=== PATIENT | female | born 1945 | race Caucasian/White ===

== ENCOUNTER 2018-10-04 12:08 | Inpatient (IN) | payer MEDICARE ==
[~2018-10-04] VITALS: Ht 175.3 cm; Wt 73.7 kg
[2018-10-04 12:52] LABS: Basophils # (auto) 0 uL; Basophils % (auto) 0.5 % (0.0-2.0); Eosinophils # (auto) 0.1 uL; Eosinophils % (auto) 0.8 % (0.0-7.0); Hematocrit 45.3 % (36.0-46.0); Hemoglobin 15.6 g/dL (12.2-16.2); Lymphocytes # (auto) 1.5 uL; Lymphocytes % (auto) 18.4 % (10.0-50.0); Mean Corpuscular Hemoglobin 32.8 pg (28.0-32.0); Mean Corpuscular Hgb Conc. 34.5 g/dL (32.0-36.0); Monocytes # (auto) 0.6 uL; Neutrophils # (auto) 6.1 uL; Neutrophils % (auto) 73.3 % (37.0-80.0); Nucleated Red Blood Cells % 0.1 %; Platelet Count (auto) 200 10^3/uL (140-450); Red Blood Cells 4.77 10^6/uL (4.0-5.20); Red Cell Distribution Width 13.6 % (11.8-14.3); White Blood Cell 8.3 10^3/uL (4.4-10.8)
[2018-10-04] MEDS ORDERED: ONDANSETRON HCL 4 MG/2 ML VIAL IV ONE (13:00)
[2018-10-04 13:13] LABS: Alanine Aminotransferase 25 U/L (13-56); Albumin 3.7 g/dL (3.4-5.0); Anion Gap 6 (5-15); Blood Urea Nitrogen 19 mg/dL (7-18); Calcium 8.6 mg/dL (8.5-10.1); Carbon Dioxide 26 mmol/L (21-32); Chloride 106 mmol/L (98-107); Glucose 221 mg/dL (74-106); Sodium 138 mmol/L (136-145)
[2018-10-04 13:18] LABS: Alkaline Phosphatase 97 U/L (45-117); Aspartate Aminotransferase 13 U/L (15-37); BUN/Creatinine Ratio 20.7; Bilirubin, Total 0.5 mg/dL (0.2-1.0); GFR African American > 60 mL/min; GFR Non-African American > 60 mL/min; Total Protein 6.9 g/dL (6.4-8.2)
[2018-10-04] MEDS: MORPHINE SULFATE 10 MG/ML INJ 1ML SDV IV ONE ×2 (13:29→13:59)
[2018-10-04] MEDS ORDERED: PROMETHAZINE HCL 25 MG/ML 1ML IV ONE (13:45)
[2018-10-04] MEDS ORDERED: NITROGLYCERIN 0.4 MG SL TAB SL PRN (16:30)
[2018-10-04] MEDS ORDERED: METOPROLOL TARTRATE 1MG/1ML-5ML VIAL IV PRN (16:30)
[2018-10-04] MEDS ORDERED: DEXTROSE (50%) 50ML SYRG IV PRN (16:30)
[2018-10-04] MEDS ORDERED: TEMAZEPAM 15 MG CAP PO PRN (16:30)
[2018-10-04] MEDS ORDERED: PROMETHAZINE HCL 25 MG/ML 1ML IV PRN (16:30)
[2018-10-04] MEDS ORDERED: MORPHINE SULFATE 10 MG/ML INJ 1ML SDV IV PRN (16:30)
[2018-10-04] MEDS ORDERED: LORazepam 0.5 MG TAB PO PRN (16:30)
[2018-10-04] MEDS: InsuLIN REG 1unit/0.01ml Soln (100units/ml) SC SCH ×2 (18:10→22:00)
[2018-10-04] MEDS: ACCU-CHEK COMFORT CURVE STRIP VI SCH ×2 (18:10→22:00)
--- NOTE | 2018-10-04 18:35 | NUR ---
Telemetry admit from [facility] admitted to Telemetry unit after SBAR received. Patient oriented to Brandy Hyatt primary RN, unit, room, bed, and unit policies regarding patient care and visiting hours. Patient now on continuous telemetry monitoring, tele box # HC2 and telemetry reading on arrival to unit is SR 76. Patient currently on RA, no c/o of SOB, patient weighed by bedscale and encouraged to call if they need something, call light within reach. All questions and concerns addressed, patient verbalized understanding.
--- NOTE | 2018-10-04 18:45 | NUR ---
Skin Patient skin assessed, pink small area noted to right knee, small ecchymosis area noted to left wrist and blanchable redness noted to sacrum, pt instructed to attempt to turn Q2hrs or often as she could to prevent skin breakdown, pt verbalized understanding, and could demonstrate how to turn self, call light within reach, bed alarm activated, cont care
[2018-10-04 19:25] VITALS: BP 127/73
--- NOTE | 2018-10-04 19:25 | NUR ---
Opening Note Received report from day shift RN. Patient is awake, alert and oriented x4. No signs or symptoms of distress or shortness of breath noted at this time. Patient states right hip pain 10/10 and is requesting pain medications. Reviewed plan of care with patient, patient verbalized understanding. Bed in low and locked position, call light within reach. Will continue to monitor Q1h hour and PRN.
[2018-10-04 19:52] LABS: Hematocrit 43.7 % (36.0-46.0)
[2018-10-04] MEDS: MORPHINE SULFATE 10 MG/ML INJ 1ML SDV IV PRN (19:52)
[2018-10-04 22:00] VITALS: BP 105/50
[2018-10-04] MEDS: METOPROLOL TARTRATE 25 MG TAB PO SCH (22:00)
--- NOTE | 2018-10-04 22:05 | NUR ---
Patient refused medications Patient refused metoprolol, states she "only takes it once a day and already took it this morning" Blood pressure is 105/50, and heart rate is 73. Patient refused accuchecks. States "I don't want to check it, and i don't take insulin at home" Educated patient on importance of checking blood sugar, patient continues to refuse. Will continue to monitor Q1 hour and PRN.
--- NOTE | 2018-10-04 23:04 | NUR ---
Patient is resting comfortably in bed with eyes closed. No signs or symptoms of distress noted at this time. Will continue to monitor Q1 hour and PRN.
[2018-10-05] MEDS: MORPHINE SULFATE 10 MG/ML INJ 1ML SDV IV PRN ×2 (01:27→12:39)
--- NOTE | 2018-10-05 01:48 | NUR ---
Patient refused lab draw Re-draw ordered for H&H, patient refused. States "she just wants to sleep." Spoke with dye lab technician, he will attempt again later. Will continue to monitor Q1 hour and PRN.
[2018-10-05 04:59] LABS: Urine Bacteria FEW /hpf (None Seen); Urine Blood Negative /uL (Negative); Urine Mucus FEW (None Seen); Urine Specific Gravity 1.015 (1.001-1.035); Urine WBC 1 /hpf (0 - 5)
--- NOTE | 2018-10-05 05:20 | NUR ---
Patient refused lab draw again Patient states she "doesn't understand the need for blood work, she only came in for a fall" Patient educated, continues to refuse.
[2018-10-05 05:46] VITALS: BP 107/54
[2018-10-05] MEDS: SODIUM CHLORIDE 0.9% 1,000 ML IV SCH ×3 (05:48→19:08)
[2018-10-05] MEDS: ACCU-CHEK COMFORT CURVE STRIP VI SCH ×4 (06:17→21:27)
[2018-10-05] MEDS: InsuLIN REG 1unit/0.01ml Soln (100units/ml) SC SCH ×4 (06:17→21:27)
--- NOTE | 2018-10-05 07:20 | NUR ---
Opening Note Received report from night nurse. Pt resting in bed awake and alert, bed in low pos., locked, rails up x2, call light in reach. Having pain to right hip. will medicate for pain.
--- NOTE | 2018-10-05 07:40 | NUR ---
Closing Note Report given to day shift RN. Patient is awake in bed, eating breakfast. No signs or symptoms of distress noted at this time.
[2018-10-05 09:07] VITALS: BP 104/53
[2018-10-05] MEDS: PANTOPRAZOLE 40 MG TAB PO SCH (09:38)
[2018-10-05] MEDS: METOPROLOL TARTRATE 25 MG TAB PO SCH (09:38)
[2018-10-05 12:41] VITALS: BP 104/48
[2018-10-05 16:46] VITALS: BP 118/59
--- NOTE | 2018-10-05 18:30 | NUR ---
IV IV infiltrated. Removed it and site is benign. Attempted to restart but the vein collapsed. Pt wants another person to restart her IV. Asked the charge nurse and one will come to attempt it after their report. Explained this to the patient.
--- NOTE | 2018-10-05 19:19 | NUR ---
SHIFT REPORT Shift report given to night nurse. Pt resting in bed. bed ini low pos., locked, rails up x 2, call light in reach.
--- NOTE | 2018-10-05 19:25 | NUR ---
Opening Note Received report from day shift RN. Patient is awake, alert and oriented x4. No signs or symptoms of distress, or shortness of breath noted at this time. Patient states right hip pain 4/10 at this time and is requesting pain medications. Reviewed plan of care with patient, patient verbalized understanding. Bed in low and locked position, call light within reach. Will continue to monitor Q1 hour and PRN.
[2018-10-05] MEDS: traMADol HCL 50 MG TAB PO PRN (19:58)
--- NOTE | 2018-10-05 20:56 | NUR ---
Patient refusing IV insertion Patient currently has no IV access and is refusing IV reinsertion at this time. Patient states " I would rather wait until later. I just want to rest now." Will continue to monitor Q1 hour and PRN.
[2018-10-05 22:00] VITALS: BP 139/73
[2018-10-05 22:53] LABS: Basophils # (auto) 0 uL; Basophils % (auto) 0.5 % (0.0-2.0); Eosinophils # (auto) 0.2 uL; Eosinophils % (auto) 2.2 % (0.0-7.0); Hemoglobin 13.9 g/dL (12.2-16.2); Lymphocytes # (auto) 2.5 uL; Lymphocytes % (auto) 32.5 % (10.0-50.0); Mean Corpuscular Hemoglobin 32.6 pg (28.0-32.0); Mean Corpuscular Hgb Conc. 34.7 g/dL (32.0-36.0); Mean Corpuscular Volume 93.9 fL (80.0-100.0); Monocytes # (auto) 0.7 uL; Monocytes % (auto) 8.7 % (0.0-12.0); Neutrophils # (auto) 4.3 uL; Neutrophils % (auto) 56.1 % (37.0-80.0); Platelet Count (auto) 164 10^3/uL (140-450); Red Blood Cells 4.25 10^6/uL (4.0-5.20); Red Cell Distribution Width 13.3 % (11.8-14.3); White Blood Cell 7.6 10^3/uL (4.4-10.8)
--- NOTE | 2018-10-05 23:24 | NUR ---
Patient resting comfortably in bed with eyes closed No signs or symptoms of distress noted at this time. Will continue to monitor Q1 hour and PRN.
[2018-10-06 05:50] VITALS: BP 114/64
[2018-10-06 06:39] LABS: Basophils # (auto) 0 uL; Basophils % (auto) 0.6 % (0.0-2.0); Eosinophils # (auto) 0.2 uL; Eosinophils % (auto) 2.5 % (0.0-7.0); Hematocrit 39.1 % (36.0-46.0); Hemoglobin 13.6 g/dL (12.2-16.2); Lymphocytes # (auto) 2.1 uL; Lymphocytes % (auto) 32.4 % (10.0-50.0); Mean Corpuscular Hemoglobin 32.8 pg (28.0-32.0); Mean Corpuscular Hgb Conc. 34.9 g/dL (32.0-36.0); Mean Corpuscular Volume 93.9 fL (80.0-100.0); Monocytes # (auto) 0.6 uL; Monocytes % (auto) 9.9 % (0.0-12.0); Neutrophils # (auto) 3.5 uL; Neutrophils % (auto) 54.6 % (37.0-80.0); Nucleated Red Blood Cells % 0.1 %; Platelet Count (auto) 159 10^3/uL (140-450); Red Blood Cells 4.16 10^6/uL (4.0-5.20); Red Cell Distribution Width 13.5 % (11.8-14.3); White Blood Cell 6.4 10^3/uL (4.4-10.8)
[2018-10-06 06:47] LABS: INR 0.93 (0.9-1.15); Partial Thromboplastin Time 25.4 sec (23.78-33.04)
[2018-10-06 06:51] LABS: Chloride 109 mmol/L (98-107); Potassium 4.1 mmol/L (3.5-5.1); Sodium 138 mmol/L (136-145)
[2018-10-06 06:55] LABS: Anion Gap 3 (5-15); BUN/Creatinine Ratio 17.1; Blood Urea Nitrogen 12 mg/dL (7-18); Calcium 7.9 mg/dL (8.5-10.1); Carbon Dioxide 26 mmol/L (21-32); GFR African American > 60 mL/min; GFR Non-African American > 60 mL/min; Glucose 171 mg/dL (74-106)
[2018-10-06] MEDS: InsuLIN REG 1unit/0.01ml Soln (100units/ml) SC SCH ×3 (06:59→16:58)
[2018-10-06] MEDS: ACCU-CHEK COMFORT CURVE STRIP VI SCH ×3 (06:59→16:57)
[2018-10-06] MEDS: traMADol HCL 50 MG TAB PO PRN (07:00)
--- NOTE | 2018-10-06 07:27 | NUR ---
Closing Note Report given to day shift RN. Patient is awake, alert and oriented x4. No signs or symptoms of distress noted at this time.
--- NOTE | 2018-10-06 07:36 | NUR ---
Shift report Shift report received from night RN Summer. Pt resting in bed with eyes open, talking. Bed in low pos., locked, rails up x 2, call light in reach. Continue to monitor closely.
--- NOTE | 2018-10-06 07:56 | NUR ---
MD VISIT Yesterday, Patient told me that Dr. Carl was in and was going view the x-rays to see if she was in need of any surgery.
[2018-10-06 09:23] VITALS: BP 130/54
[2018-10-06] MEDS: PANTOPRAZOLE 40 MG TAB PO SCH (09:55)
[2018-10-06] MEDS ORDERED: traMADol HCL 50 MG TAB PO PRN (11:30)
[2018-10-06] MEDS ORDERED: traMADol HCL 50 MG TAB PO ONE (11:30)
--- NOTE | 2018-10-06 14:07 | NUR ---
PT OK TO D/C PATIENT PER AZIZA PT, PATIENT OK TO DISCHARGE HOME.
[2018-10-06 14:13] VITALS: BP 142/103
--- NOTE | 2018-10-06 14:15 | NUR ---
Pt joyceo'd good liz to ambulation w/ FWW. Pt did experience nausea after gait training. 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 Pt is good to D/C to home Addendum: 10/06/18 at 1417 by Rosa Dubon PT Amended: Links added.
[2018-10-06] MEDS ORDERED: ONDANSETRON ODT 4 MG TAB PO ONE (17:00)
[2018-10-06 17:06] VITALS: BP 139/77
[2018-10-06 17:18] VITALS: BP 139/77
--- NOTE | 2018-10-06 17:32 | NUR ---
DISCHARGE CALLED SHAILA RICH OF ER AND EXPLAINED THAT THE DOCTOR DID NOT ORDER GLUCOMETER NOR SLIDING SCALE AND INSULIN. HE SAID FOR PT TO FOLLOW UP WITH HER DOCTOR. THIS IS EXPLAINED TO THE PATIENT. PATIENT HAS ALL HER DISCHARGE INSTRUCTIONS. IV AND TELE WERE REMOVED YESTERDAY. HER FAMILY IS HERE TO TAKE HER HOME. PT HAS HER PRESCRIPTIONS IN HAND, AND ALL HER BELONGINGS. SHE KNOWS TO CALL HER DOCTOR ON MONDAY FOR A FOLLOW UP APPT.
--- NOTE | 2018-10-06 18:00 | NUR ---
WHEELED OUT PATIENT WAS WHEELED OUT ACCOMP. BY RN TO THE VEHICLE. THE SON WAS DRIVING. PT HAS ALL HER BELONGINGS INCLUDING CELL PHONE AND DISCHARGE INSTRUCTIONS. NO PROBLEM GETTING INTO THE SUV.
== END 2018-10-06 19:22 | disposition home or self-care (01) | DRG 605 ==
LOC: EDBD 12:08 → ER 12:17 → TELE 16:32 → TELE-WESTW 18:40 → WEST WING 10-05 14:00
PROVIDERS: ADMIT Internal Medicine; ATTEND Internal Medicine
DX: S70.01XA Contusion of right hip, initial encounter (principal); E11.65 Type 2 diabetes mellitus with hyperglycemia; I48.91 Unspecified atrial fibrillation; F17.210 Nicotine dependence, cigarettes, uncomplicated; W18.39XA Other fall on same level, initial encounter; F40.240 Claustrophobia; Z90.49 Acquired absence of other specified parts of digestive tract; Z88.8 Allergy status to other drugs, medicaments and biological substances; Y93.89 Activity, other specified; Y92.89 Other specified places as the place of occurrence of the external cause
CPT/HCPCS: 36415; 73502; 73700; 80048; 80053; 81001; 82962; 83036; 84484; 85014; 85018; 85025; 85610; 85730; 93005; 94761; 96374; 96375; 97110; 97116; 97163; 97530; G0378; J1815; J2405; Q0162